=== PATIENT | male | born 1950 | race Caucasian/White ===

== ENCOUNTER 2021-03-07 07:49 | Emergency (ER) | payer MEDICARE, MEDICAID ==
[~2021-03-07] VITALS: Ht 162.6 cm; Wt 68.6 kg
[~2021-03-07 07:49] MED LIST: ASPI-496 PO; ATOR40TA78 PO; ENAL10TA9 PO; GLIP5TAB10 PO; HTN; INSU100I28 SQ-INSULIN; MAGN400O7 PO; METF500T17 PO; SIMV20TA19 PO
[2021-03-07] MEDS ORDERED: BACITRACIN ZINC OINT 500U/GM, 0.9 GM ONE (08:21)
[2021-03-07 08:28] VITALS: BP 128/73
[2021-03-07 08:28] LABS: BASOPHILS % (AUTO) 1 % (0-1); EOSINOPHILS % (AUTO) 3 % (1-7); LYMPHOCYTES % (AUTO) 20 % (22-44); MEAN CORPUSCULAR HEMOGLOBIN 31.9 pg (27.5-34.5); MEAN CORPUSCULAR HGB CONC 34.2 g/dL (33.2-36.2); MEAN PLATELET VOLUME 6.8 fL (7.4-10.4); MONOCYTES % (AUTO) 7 % (2-9); NEUTROPHILS % (AUTO) 70 % (42-75); PLATELET COUNT 269 x10^3/uL (130-400); RED BLOOD COUNT 3.96 x10^6/uL (4.38-5.82); RED CELL DISTRIBUTION WIDTH 13.5 % (9.4-14.8)
--- NOTE | 2021-03-07 08:28 | NUR ---
PT. HAS C/O RIGHT ANKLE WOUND X 1 WEEK. PT. HAS DM. HIS LEFT LEG IS A PROTHETIC AND HE DOESN'T WANT TO LOSE THE RIGHT LEG. 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
[2021-03-07 08:31] LABS: MD NO
[2021-03-07 08:37] LABS: ALBUMIN 3.7 g/dL (3.4-5.0); ANION GAP 6 mmol/L (5-15); CALCIUM 9.2 mg/dL (8.5-10.1); CHLORIDE 109 mmol/L (98-107); CREATININE 1.04 mg/dL (0.7-1.3)
--- NOTE | 2021-03-07 08:42 | NUR ---
REPORT FROM TALHA NAVARRO.
--- NOTE | 2021-03-07 08:43 | NUR ---
GAVE BEDSIDE REPORT TO MIGUEL PALENCIA
== END 2021-03-07 09:59 | disposition home or self-care (01) ==
LOC: ED 08:42
DX: T25.291D Burn of second degree of multiple sites of right ankle and foot, subsequent encounter (principal); T31.0 Burns involving less than 10% of body surface; E11.9 Type 2 diabetes mellitus without complications; Z89.512 Acquired absence of left leg below knee
CPT/HCPCS: 16020; 36415; 80048; 82040; 85025; 86140; 99283